=== PATIENT | male | born 1960 | race American Indian/Alaskan Native ===

== ENCOUNTER 2018-12-13 16:38 | Emergency (ER) | payer OTHER ==
[2018-12-13 16:42] VITALS: BMI 34.7
[2018-12-13 16:44] VITALS: BP 143/85; PULSE 88; TEMP 98; O2SAT 97
[2018-12-13] MEDS ORDERED: Tmp-Smz 800 mg-160 mg DS Tab PO STA (17:27)
--- NOTE | 2018-12-13 17:55 | C.PDOC ---
History Of Present Illness pt with hx dm, not on medication at the moment, c/o abscess to back of neck for 1-2 months that is getting worse. pt sts it started after shaving neck. denies fever or chills. Time Seen by Provider: 12/13/18 17:04 Chief Complaint (Nursing): Abnormal Skin Integrity History Per: Patient History/Exam Limitations: no limitations Onset/Duration Of Symptoms: Hrs Current Symptoms Are (Timing): Still Present Additional History Per: Patient Past Medical History Reviewed: Historical Data, Nursing Documentation, Vital Signs Vital Signs: Last Vital Signs Temp 98.0 F 12/13/18 16:42 Pulse 88 12/13/18 16:42 Resp 20 12/13/18 16:42 BP 143/85 12/13/18 16:42 Pulse Ox 97 12/13/18 16:42 - Medical History PMH: HTN Surgical History: No Surg Hx Family History: States: Unknown Family Hx - Social History Hx Alcohol Use: Yes Hx Substance Use: No - Immunization History Hx Tetanus Toxoid Vaccination: No Hx Influenza Vaccination: No Hx Pneumococcal Vaccination: No Review Of Systems Constitutional: Negative for: Fever, Chills Skin: Positive for: Other (abscess to back of neck ) Physical Exam - Physical Exam Appears: Non-toxic, No Acute Distress Skin: Warm, Dry, Other (posterior left neck (right below hairline): 2cm round, firm area that is tender and erythematous. Few, punctate areas of purulence, with firmness to central areas ) Neurological/Psych: Normal Speech, Normal Cognition ED Course And Treatment O2 Sat by Pulse Oximetry: 97 (on RA) Pulse Ox Interpretation: Normal Medical Decision Making Medical Decision Making: Tylenol PO, Keflex PO and Bactrim PO ordered. hx dm with abscess toneck. scant peripheral areas fluctuant with firm central area; overlying erythema. bg 116 in ed. will give antibiotics with f/u in 2 days. warm compresses. Disposition Counseled Patient/Family Regarding: Diagnosis, Need For Followup, Rx Given - Disposition Disposition: HOME/ ROUTINE Disposition Time: 17:56 Condition: GOOD Additional Instructions: Take antibiotics as prescribed. Warm compresses to neck area every 1-2 hours for 15 minutes. Tyle nol for pain. Return to ER in 2-3 days for wound check. Tylenol for pain if needed. Follow up in medical clinic next week. Prescriptions: Cephalexin [cephalexin] 500 mg PO Q6 #28 cap Sulfamethoxazole/Trimethoprim [Bactrim 400-80 mg Tablet] 1 each PO BID #14 tablet Instructions: Boil (DC) Forms: [facility] ([place]), General Discharge Instructions - Clinical Impression Clinical Impression: Abscess of skin of neck - PA / [employer] / Resident Statement MD/DO has reviewed & agrees with the documentation as recorded. - Scribe Statement The provider has reviewed the documentation as recorded by the Scribe (Layne Lucas) All medical record entries made by the Scribe were at my direction and personally dictated by me. I have reviewed the chart and agree that the record accurately reflects my personal performance of the history, physical exam, medical decision making, and the department course for this patient. I have also personally directed, reviewed, and agree with the discharge instructions and disposition.
[2018-12-13 18:36] VITALS: RESP 18
== END 2018-12-13 18:36 | disposition home or self-care (01) ==
LOC: C.ER 16:38
DX: L02.11 Cutaneous abscess of neck (principal)